=== PATIENT | female | born 2000 | race Caucasian/White ===

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

== ENCOUNTER 2018-05-15 17:56 | Emergency (ER) | payer MEDICAID ==
[~2018-05-15] VITALS: Ht 165.1 cm; Wt 53.0 kg
[2018-05-15 18:11] VITALS: BP 116/76
== END 2018-05-15 18:53 | disposition home or self-care (01) ==
LOC: ED 18:20
DX: T63.301A Toxic effect of unspecified spider venom, accidental (unintentional), initial encounter (principal); J45.909 Unspecified asthma, uncomplicated; W57.XXXA Bitten or stung by nonvenomous insect and other nonvenomous arthropods, initial encounter; Y93.89 Activity, other specified; Y92.009 Unspecified place in unspecified non-institutional (private) residence as the place of occurrence of the external cause; Y99.8 Other external cause status
CPT/HCPCS: 10060; 99283

== ENCOUNTER 2021-01-18 23:52 | Emergency (ER) | payer MEDICAID ==
[~2021-01-18] VITALS: Ht 162.6 cm; Wt 64.8 kg
[2021-01-18 23:54] VITALS: BP 128/71
== END 2021-01-19 01:48 | disposition home or self-care (01) ==
LOC: ED 01-19 01:30
DX: O00.01 Abdominal pregnancy with intrauterine pregnancy (principal); Z3A.23 23 weeks gestation of pregnancy; J45.909 Unspecified asthma, uncomplicated
CPT/HCPCS: 76815; 99284

== ENCOUNTER 2021-04-23 18:55 | Inpatient (IN) | payer MEDICAID ==
[~2021-04-23] VITALS: Ht 165.1 cm; Wt 68.2 kg
[2021-04-23] MEDS ORDERED: OXYTOCIN 30U/ 0.9% NaCL 500ML 500 ML IV PRN (19:00)
[2021-04-23] MEDS ORDERED: OXYTOCIN 30U/ 0.9% NaCL 500ML 500 ML ONE (19:00)
[2021-04-23] MEDS ORDERED: FENTANYL PF 100 MCG/2ML IVPush PRN (19:00)
[2021-04-23] MEDS ORDERED: D5%-LACTATED RINGERS 1,000 ML IV SCH (19:00)
[2021-04-23] MEDS ORDERED: FENTANYL PF 100 MCG/2ML IV PRN (19:00)
[2021-04-23] MEDS ORDERED: TERBUTALINE 1 MG/ML, 1ML IVPush PRN (19:00)
[2021-04-23] MEDS ORDERED: TERBUTALINE 1 MG/ML, 1ML SQ PRN ×2 (19:00)
[2021-04-23] MEDS ORDERED: NEWBORN KIT ONE (19:00)
[2021-04-23] MEDS ORDERED: PENICILLIN GK 5,000,000 UNITS in DEXTROSE 5% 100 ML IVPB ONE (19:00)
[2021-04-23] MEDS ORDERED: OXYTOCIN 30U/ 0.9% NaCL 500ML 500 ML IV ONE (19:00)
[2021-04-23] MEDS ORDERED: LACTATED RINGERS 1,000 ML IV SCH ×2 (19:00→20:30)
[2021-04-23 19:29] LABS: BASOPHILS % (AUTO) 0 % (0-1); EOSINOPHILS % (AUTO) 1 % (1-7); LYMPHOCYTES % (AUTO) 8 % (22-44); MEAN CORPUSCULAR HEMOGLOBIN 30.2 pg (27.0-34.8); MEAN CORPUSCULAR HGB CONC 32.8 g/dL (32.4-35.8); MEAN PLATELET VOLUME 8.9 fL (7.4-10.4); MONOCYTES % (AUTO) 5 % (2-9); NEUTROPHILS % (AUTO) 87 % (42-75); PLATELET COUNT 308 x10^3/uL (130-400); RED BLOOD COUNT 3.93 x10^6/uL (3.82-5.3); RED CELL DISTRIBUTION WIDTH 14.3 % (9.6-15.2)
[2021-04-23] MEDS ORDERED: PLEASE ENTER HEIGHT AND WEIGHT MC SCH (19:30)
[2021-04-23] MEDS ORDERED: EPHEDRINE 50 MG/ML, 1ML ONE (19:45)
[2021-04-23] MEDS ORDERED: FENTANYL/BUPIV./NS/PF 250 ML EPIDCONT ONE (19:51)
[2021-04-23] MEDS ORDERED: BUPIVACAINE 0.25% ONE (19:51)
[2021-04-23 19:59] LABS: AMPHETAMINE SCREEN, URINE Positive (Negative); BARBITURATE SCREEN, URINE Negative (Negative); BENZODIAZEPINE SCREEN, URINE Negative (Negative); CANNABINOID SCREEN, URINE Negative (Negative); COCAINE SCREEN, URINE Negative (Negative); METHADONE SCREEN, URINE Negative (Negative); OPIATE SCREEN, URINE Positive (Negative)
[2021-04-23] MEDS ORDERED: EPHEDRINE 50 MG/ML, 1ML IVPush PRN (20:30)
[2021-04-23] MEDS ORDERED: LACTATED RINGERS 1,000 ML IVBOLUS PRN (20:30)
[2021-04-23] MEDS ORDERED: FENTANYL/BUPIV./NS/PF 250 ML EPIDCONT SCH (20:30)
[2021-04-23] MEDS: OXYTOCIN 30U/ 0.9% NaCL 500ML 500 ML IV SCH (21:10)
[2021-04-23] MEDS: IBUPROFEN 600 MG TABLET PO PRN (21:45)
[2021-04-23] MEDS ORDERED: SIMETHICONE 80 MG CHEW TAB PO PRN (22:00)
[2021-04-23] MEDS ORDERED: HYDROcodone/APAP 5/325 TABLET PO PRN ×2 (22:00)
[2021-04-23] MEDS ORDERED: DOCUSATE 100 MG CAPSULE PO PRN (22:00)
[2021-04-23] MEDS ORDERED: ACETAMINOPHEN 325 MG TABLET PO PRN (22:00)
[2021-04-23] MEDS ORDERED: ONDANSETRON 2MG/ML, 2ML IV PRN (22:00)
[2021-04-23 23:30] VITALS: BP 120/71
[2021-04-23] MEDS ORDERED: PENICILLIN GK 2,500,000 UNITS in DEXTROSE 5% 100 ML IVPB SCH (23:30)
[2021-04-24 04:00] VITALS: BP 114/70
[2021-04-24] MEDS: IBUPROFEN 600 MG TABLET PO PRN (04:19)
[2021-04-24 05:41] LABS: BASOPHILS % (AUTO) 0 % (0-1); EOSINOPHILS % (AUTO) 0 % (1-7); LYMPHOCYTES % (AUTO) 7 % (22-44); MEAN CORPUSCULAR HEMOGLOBIN 30.4 pg (27.0-34.8); MEAN CORPUSCULAR HGB CONC 32.9 g/dL (32.4-35.8); MEAN PLATELET VOLUME 9.1 fL (7.4-10.4); MONOCYTES % (AUTO) 7 % (2-9); NEUTROPHILS % (AUTO) 86 % (42-75); PLATELET COUNT 284 x10^3/uL (130-400); RED BLOOD COUNT 3.68 x10^6/uL (3.82-5.3)
[2021-04-24] MEDS: OXYTOCIN 30U/ 0.9% NaCL 500ML 500 ML IV SCH (08:00)
[2021-04-24 08:05] VITALS: BP 110/69
[2021-04-24] MEDS ORDERED: PRENATAL VIT/IRON/FA 1 EACH TABLET PO SCH (09:00)
[2021-04-24] MEDS ORDERED: DIPH,PERTUSS(ACELL),TET VAC/PF NC IM-VACC ONE ×2 (10:59→11:00)
== END 2021-04-24 11:15 | disposition home or self-care (01) | DRG 807 ==
LOC: LDOP 18:55 → LDIP 18:58 → 2NW 23:10
PROVIDERS: ADMIT Obstetrics & Gynecology; ATTEND Obstetrics & Gynecology
PROC: 10E0XZZ Delivery of Products of Conception, External Approach (ICD-10-PCS; principal; 2021-04-23)
PROC: 3E0R3BZ Introduction of Anesthetic Agent into Spinal Canal, Percutaneous Approach (ICD-10-PCS; 2021-04-23)
PROC: 00HU33Z Insertion of Infusion Device into Spinal Canal, Percutaneous Approach (ICD-10-PCS; 2021-04-23)
DX: O99.324 Drug use complicating childbirth (principal); Z37.0 Single live birth; Z3A.37 37 weeks gestation of pregnancy; F15.90 Other stimulant use, unspecified, uncomplicated; Z20.822 Contact with and (suspected) exposure to COVID-19
CPT/HCPCS: 36415; 80307; 85025; 86592; 86762; 86803; 86850; 86900; 87340; 87635; 87806; 88307; 90715; G0378; J2540; J3010; G0475; J2590; J7120